=== PATIENT | female | born 1990 | race Caucasian/White ===

== ENCOUNTER 2017-04-01 17:30 | Inpatient (IN) | payer SELFPAY ==
[2017-04-01] MEDS ORDERED: ALBUTEROL SO4 2.5/IPRATROPIUM 0.5 INH SOL 3 ML VIAL.NEB. NEB ONE ×4 (17:51→19:00)
--- NOTE | 2017-04-01 17:52 | PDOC ---
History of Present Illness - History of Present Illness Initial Comments: 04/01/17 18:33 The patient is a 26 year old female, with a significant past medical history of asthma, who presents to the emergency department for asthma exacerbation. Patient states that 2 days ago, she began experiencing cold-like symptoms. She states she took her albuterol and Dulera pump which helped but only for a short period of time. Besides the shortness of breath, she is currently experiencing a headache, chills, congestion, runny nose, and is coughing up green mucus. She states that her last asthma attack occurred 2 years ago. She denies recent fevers or dizziness. She denies recent nausea, vomit, diarrhea or constipation. She denies recent dysuria, frequency, urgency or hematuria. She denies recent chest pain. Allergies: NKA Past surgical history: None reported. Social history: Nonsmoker. Denies EtOH use. Smokes marijuana occasionally. <Mari Van - Last Filed: 04/01/17 18:36> <Chadd Dong - Last Filed: 04/03/17 07:55> - General Chief Complaint: Respiratory Distress Stated Complaint: ASTHMA AND COLD SYMPTOMS Time Seen by Provider: 04/01/17 17:51 Past History <Mari Van - Last Filed: 04/01/17 18:36> - Past Medical History Anemia: No Asthma: Yes Cancer: No Cardiac Disorders: No CVA: No COPD: No CHF: No Dementia: No Diabetes: No GI Disorders: No Disorders: No HTN: No Hypercholesterolemia: No Liver Disease: No Seizures: No Thyroid Disease: No - Surgical History Abdominal Surgery: No Appendectomy: No Cardiac Surgery: No Cholecystectomy: No Lung Surgery: No Neurologic Surgery: No Orthopedic Surgery: No - Immunization History Immunization Up to Date: Yes - Suicide/Smoking/Psychosocial Hx Smoking Status: No Smoking History: Never smoked Have you smoked in the past 12 months: No Number of Cigarettes Smoked Daily: 0 Information on smoking cessation initiated: No Hx Alcohol Use: Yes (SOCIAL) Drug/Substance Use Hx: Yes (MARIJUANA) Substance Use Type: Alcohol, Marijuana Hx Substance Use Treatment: No <Chadd Dong - Last Filed: 04/03/17 07:55> - Past Medical History Allergies/Adverse Reactions: Allergies Allergy/AdvReac Type Severity Reaction Status Date / Time No Known Allergies Allergy Verified 04/01/17 17:32 Home Medications: Ambulatory Orders Albuterol 0.083% Nebulizer Tashia [Ventolin 0.083% Nebulizer Soln -] 1 neb NEB Q6H PRN #1 box 04/01/17 Albuterol Sulfate Inhaler - [Ventolin HFA Inhaler -] 2 puff BC PRN 04/01/17 Prednisone [Deltasone -] 20 mg PO DAILY #3 tablet 04/01/17 Review of Systems - Review of Systems Comments:: 04/01/17 18:32 CONSTITUTIONAL: Present: chills Absent: fever, diaphoresis, generalized weakness, malaise, loss of appetite HEENT: Present: rhinorrhea, nasal congestion. Absent: throat pain, throat swelling, difficulty swallowing, mouth swelling, ear pain, eye pain, visual Changes CARDIOVASCULAR: Absent: chest pain, syncope, palpitations, irregular heart rate, lightheadedness , peripheral edema RESPIRATORY: Present: productive cough (w/ green mucosa), shortness of breath, dyspnea, wheezing Absent: orthopnea, stridor, hemoptysis GASTROINTESTINAL: Absent: abdominal pain, abdominal distension, nausea, vomiting, diarrhea, constipation, melena, hematochezia GENITOURINARY: Absent: dysuria, frequency, urgency, hesitancy, hematuria, flank pain, genital pain MUSCULOSKELETAL: Absent: myalgia, arthralgia, joint swelling SKIN: Absent: rash, itching, pallor HEMATOLOGIC/IMMUNOLOGIC: Absent: easy bleeding, easy bruising, lymphadenopathy, frequent infections ENDOCRINE: Absent: unexplained weight gain, unexplained weight loss, heat intolerance, cold intolerance NEUROLOGIC: Present: headache Absent: focal weakness or paresthesias, dizziness, unsteady gait, seizure, mental status changes, bladder or bowel incontinence PSYCHIATRIC: Absent: anxiety, depression, suicidal or homicidal ideation, hallucinations. <Mari Van - Last Filed: 04/01/17 18:36> *Physical Exam - Vital Signs Last Vital Signs Temp Pulse Resp BP Pulse Ox 98.5 F 116 H 20 121/81 94 L 04/01/17 17:32 04/01/17 17:32 04/01/17 17:32 04/01/17 17:32 04/01/17 17:32 - Physical Exam Comments: 04/01/17 18:31 GENERAL: Patient is awake, alert . Mild- moderate respiratory distress. Respiratory rate 28 & laboured. 94 % oxygen saturation. HEENT: Normocephalic, atraumatic. PERRLA, EOMI. No conjunctival pallor. Sclera are non- icteric. Moist mucous membranes. Oropharynx is clear. Watery nasal discharge. Mild-moderate nasal congestion, mild erythema of throat without swelling, masses or exudate. NECK: Supple. Full ROM. No JVD. Carotid pulses 2+ and symmetric, without bruits. No thyromegaly. No palpable lymph nodes. CARDIOVASCULAR: 120 bpm - tachycardic. No murmurs, rubs, or gallops. Distal pulses are 2+ and symmetric. PULMONARY: Tachypnic, dyspnea mild-moderate. Bilateral wheezing involving all lung mathur. ABDOMINAL: Soft. Non-tender .No masses Non-distended. No rebound or guarding. No organomegaly. Normoactive bowel sounds. MUSCULOSKELETAL Normal range of motion at all joints. No bony deformities or tenderness. No CVA tenderness. EXTREMITIES: No cyanosis. No clubbing. No edema. No calf tenderness. SKIN: Warm and dry. Normal capillary refill. No rashes. No jaundice. NEUROLOGICAL: Intact. GENERAL: <Mari Van - Last Filed: 04/01/17 18:36> - Vital Signs Last Vital Signs Temp Pulse Resp BP Pulse Ox 98.5 F 116 H 20 121/81 94 L 04/01/17 17:32 04/01/17 17:32 04/01/17 17:32 04/01/17 17:32 04/01/17 17:32 <Chadd Dogn - Last Filed: 04/03/17 07:55> ED Treatment Course - Medications Given in the ED: ED Medications Discontinued Medications Generic Name Dose Route Start Last Admin Trade Name Freq PRN Reason Stop Dose Admin Albuterol/Ipratropium 1 amp 04/01/17 17:51 04/01/17 17:44 Duoneb - NEB 04/01/17 17:52 1 amp ONCE ONE Administration Albuterol/Ipratropium 1 amp 04/01/17 18:06 04/01/17 18:07 Duoneb - NEB 04/01/17 18:07 1 amp ONCE ONE Administration <Mari Van - Last Filed: 04/01/17 18:36> - LABORATORY CBC & Chemistry Diagram: 04/02/17 07:30 04/02/17 07:30 <Chadd Dong - Last Filed: 04/03/17 07:55> Medical Decision Making - Medical Decision Making 04/01/17 18:24 Patient had significant asthma as a child, but had no exacerbations in over 2 years. She is prescribed Dulera, which she had not been using until symptoms flared yesterday. She is also prescribed albuterol rescue inhaler, which she has been using with limited relief. This episode precipitated by what appears to be an upper respiratory infection. She has never been intubated, has had no overnight hospitalizations, and has not taken steroids since childhood. Exam reveals significant bilateral wheezing, with increased respiratory rate and decreased oxygen saturation on room air. She is also tachycardic and anxious , probably the result of prolonged albuterol use. After 2 nebulizer treatments, oxygen saturation has improved to 99-100%, respiratory rate 18 and unlabored, but she remains anxious and jittery, most likely due to to the beta agonist. A third nebulizer treatment was initiated. Steroids were recommended, but the patient declined, stating that they made her "fat" Patient was signed out to Dr. Hernandez at 7 PM pending further evaluation after third treatment. Patient appeared to be improving, with good oxygen saturation and improved breath sounds, decreased wheezing. <Chadd Dong - Last Filed: 04/03/17 07:55> *DC/Admit/Observation/Transfer - Attestations Scribe Attestion: 04/01/17 18:37 Documentation prepared by Mari Van, acting as medical services manager for Chadd Edmond MD. <Mari Van - Last Filed: 04/01/17 18:36> <Chadd Dong - Last Filed: 04/03/17 07:55> Diagnosis at time of Disposition: Status asthmaticus Qualifiers: Asthma severity: moderate Asthma persistence: unspecified Qualified Code(s): J45.902 - Unspecified asthma with status asthmaticus Pneumonia Qualifiers: Pneumonia type: due to unspecified organism Laterality: right Lung location: lower lobe of lung Qualified Code(s): J18.1 - Lobar pneumonia, unspecified organism - Discharge Dispostion Condition at time of disposition: Stable
[2017-04-01] MEDS ORDERED: predniSONE 20 MG TABLET (UD) PO ONE (19:38)
[2017-04-01] MEDS ORDERED: predniSONE 20 MG TABLET (UD) ONE (19:46)
--- NOTE | 2017-04-01 21:04 | PDOC ---
*Physical Exam - Vital Signs Last Vital Signs Temp Pulse Resp BP Pulse Ox 98.5 F 124 H 24 121/81 94 L 04/01/17 17:32 04/01/17 19:51 04/01/17 19:51 04/01/17 17:32 04/01/17 19:51 ED Treatment Course - RADIOLOGY Radiology Studies Ordered: Category Date Time Status CHEST PA & LAT [RAD] Stat Radiology 04/01/17 20:05 Taken - Medications Given in the ED: ED Medications Discontinued Medications Generic Name Dose Route Start Last Admin Trade Name Freq PRN Reason Stop Dose Admin Albuterol/Ipratropium 1 amp 04/01/17 17:51 04/01/17 17:44 Duoneb - NEB 04/01/17 17:52 1 amp ONCE ONE Administration Albuterol/Ipratropium 1 amp 04/01/17 18:06 04/01/17 18:07 Duoneb - NEB 04/01/17 18:07 1 amp ONCE ONE Administration Albuterol/Ipratropium 1 amp 04/01/17 19:00 04/01/17 19:01 Duoneb - NEB 04/01/17 19:01 1 amp ONCE ONE Administration Prednisone 40 mg 04/01/17 19:38 04/01/17 19:50 Deltasone - PO 04/01/17 19:39 40 mg ONCE ONE Administration Progress Note - Progress Note Progress Note: Care of this patient was transferred to mi from Dr. Oneil at 1900 hrs. Patient is a 26-year-old female who has a history of asthma in the past that is been stable times many years. Patient however had a recent upper respiratory tract infection and now has acute exacerbation of her asthma. Patient is relieved using prednisone at this time but is getting dual nebs back- to-back. Patient's O2 sat is in the high 80s to 90s at this time. 20:00 Reevaluation. Patient still remains tight post 3 duo nebs area discussed with patient's importance of giving her some prednisone and possible admission. Patient did agree to have some prednisone. Patient is also complaining of some pleuritic type back pain so we'll get a chest x-ray to rule out infiltrate 21:00 Reevaluation patient still is not x-ray wheezing with extra phase greater than inspiratory phase and O2 sat in the low 90s. Patient is still using some accessory muscles with respiration and says that her chest feels tight. Chest x- ray does reveal some peribronchial thickening with questionable perihilar infiltrate. Chest x-ray was interpreted by me. Patient will need an ulcer appreciated be should at least overnight for additional treatment, monitoring and some IV antibiotics are ordered in addition to CBC, and blood cultures *DC/Admit/Observation/Transfer Diagnosis at time of Disposition: Status asthmaticus Qualifiers: Asthma severity: moderate Asthma persistence: unspecified Qualified Code(s): J45.902 - Unspecified asthma with status asthmaticus Pneumonia Qualifiers: Pneumonia type: due to unspecified organism Laterality: right Lung location: lower lobe of lung Qualified Code(s): J18.1 - Lobar pneumonia, unspecified organism - Discharge Dispostion Condition at time of disposition: Stable - Prescriptions Prescriptions: Albuterol 0.083% Nebulizer Tashia [Ventolin 0.083% Nebulizer Soln -] 1 neb NEB Q6H PRN #1 box PRN Reason: wheezing Prednisone [Deltasone -] 20 mg PO DAILY #3 tablet - Referrals - Patient Instructions - Post Discharge Activity
[2017-04-01] MEDS ORDERED: AZITHROMYCIN 250 MG TABLET PO ONE (21:05)
[2017-04-01] MEDS: CEFTRIAXONE 1 GM in DEXTROSE 5%-WATER - 50 ML IVPB ONE (21:10)
[2017-04-01 21:26] LABS: BASO % 3.2 % (0-2.0); EOS % 4.6 % (0-4.5); MCHC 33.6 g/dl (32.0-36.0); MEAN CELL VOLUME 92.2 fl (80-96); MEAN PLT VOLUME 10.3 fl (7.5-11.1); NEUT % 76.1 % (42.8-82.8); PLATELET COUNT 196 K/MM3 (134-434); WHITE BLOOD COUNT 12.5 K/mm3 (4.0-10.8)
[2017-04-01 21:34] LABS: ALBUMIN 4.2 g/dl (3.5-5.0); ALK PHOS 65 U/L (32-92); ANION GAP 9 (8-16); CALCIUM 9.7 mg/dl (8.4-10.2); CO2 24 mmol/L (22-28); CREATININE 0.6 mg/dl (0.6-1.3); GLUCOSE,RANDOM 99 mg/dl (74-106); SGOT/AST 20 U/L (10-42); SGPT/ALT 13 U/L (10-40); TOT PROT 8.1 g/dl (6.4-8.3)
[2017-04-01] MEDS ORDERED: AZITHROMYCIN 250 MG TABLET ONE (21:46)
[2017-04-01] MEDS ORDERED: cefTRIAXone SODIUM 1 GM VIAL ONE (21:46)
--- NOTE | 2017-04-02 00:17 | HP ---
CHIEF COMPLAINT: COUGH, SOB PCP: HISTORY OF PRESENT ILLNESS: This is a 26 year old female with a past medical history significant for asthma who presented to the ED with a 2 day history of cough and cold symptoms. Cough is productive with greenish mucous. She denies measured fever but reports chills. ER course was notable for: (1) WBC 12.5 (2) CXR with a ? infiltrate Recent Travel: pt returned from [place] 6 weeks ago PAST MEDICAL HISTORY: asthma PAST SURGICAL HISTORY: pt denies Social History: Smoking: pt denies Alcohol: occ 3 drinks per occasion on weekends Drugs: marijuana, none since became ill Allergies No Known Allergies Allergy (Verified 04/01/17 17:32) HOME MEDICATIONS: 3 Medication Instructions Recorded Albuterol Sulfate Inhaler - 2 puff BC PRN 04/01/17 [Ventolin HFA Inhaler -] REVIEW OF SYSTEMS CONSTITUTIONAL: chills Absent: fever, diaphoresis, generalized weakness, malaise, loss of appetite, weight change HEENT: Present: rhinorrhea, nasal congestion Absent: throat pain, throat swelling, difficulty swallowing, mouth swelling, ear pain, eye pain, visual changes CARDIOVASCULAR: Absent: chest pain, syncope, palpitations, irregular heart rate, lightheadedness , peripheral edema RESPIRATORY: Present: cough, shortness of breath Absent: dyspnea with exertion, orthopnea, wheezing, stridor, hemoptysis GASTROINTESTINAL: Absent: abdominal pain, abdominal distension, nausea, vomiting, diarrhea, constipation, melena, hematochezia GENITOURINARY: Absent: dysuria, frequency, urgency, hesitancy, hematuria, flank pain, genital pain MUSCULOSKELETAL: Absent: myalgia, arthralgia, joint swelling, back pain, neck pain SKIN: Absent: rash, itching, pallor HEMATOLOGIC/IMMUNOLOGIC: Absent: easy bleeding, easy bruising, lymphadenopathy, frequent infections ENDOCRINE: Absent: unexplained weight gain, unexplained weight loss, heat intolerance, cold intolerance NEUROLOGIC: Present: headache Absent: focal weakness or paresthesias, dizziness, unsteady gait, seizure, mental status changes, bladder or bowel incontinence PSYCHIATRIC: Absent: anxiety, depression, suicidal or homicidal ideation, hallucinations. PHYSICAL EXAMINATION Vital Signs - 24 hr 3 04/01/17 04/01/17 04/01/17 17:32 19:51 21:01 Temperature 98.5 F 99.2 F Pulse Rate 116 H Pulse Rate [ 124 H 112 H Left Radial] Respiratory 20 24 24 Rate Blood Pressure 121/81 Blood Pressure 127/81 [Left Arm] O2 Sat by Pulse 94 L 94 L 92 L Oximetry (%) GENERAL: Awake, alert, and fully oriented, in no acute distress. HEAD: Normal with no signs of trauma. EYES: Pupils equal, round and reactive to light, extraocular movements intact, sclera anicteric, conjunctiva clear. No lid lag. EARS, NOSE, THROAT: Ears normal, nares patent, oropharynx clear without exudates. Moist mucous membranes. NECK: Normal range of motion, supple without lymphadenopathy, JVD, or masses. LUNGS: Breath sounds equal, clear to auscultation bilaterally. No crackles or rhonchi. No accessory muscle use. scattered inspiratory and expiratory wheezes all lung mathur HEART: Regular rate and rhythm, normal S1 and S2 without murmur, rub or gallop. ABDOMEN: Soft, nontender, not distended, normoactive bowel sounds, no guarding, no rebound, no masses. No hepatomegaly or splenomegaly. MUSCULOSKELETAL: Normal range of motion at all joints. No bony deformities or tenderness. No CVA tenderness. UPPER EXTREMITIES: 2+ pulses, warm, well-perfused. No cyanosis. No clubbing. No peripheral edema. LOWER EXTREMITIES: 2+ pulses, warm, well-perfused. No calf tenderness. No peripheral edema. NEUROLOGICAL: Cranial nerves II-XII intact. Normal speech. Normal gait. PSYCHIATRIC: Cooperative. Good eye contact. Appropriate mood and affect. SKIN: Warm, dry, normal turgor, no rashes or lesions noted, normal capillary refill. Laboratory Results - last 24 hr 3 04/01/17 04/01/17 21:00 21:00 WBC 12.5 H RBC 4.84 Hgb 15.0 Hct 44.7 MCV 92.2 MCH 31.0 MCHC 33.6 RDW 14.0 Plt Count 196 MPV 10.3 Neutrophils % 76.1 Lymphocytes % 11.4 Monocytes % 4.7 Eosinophils % 4.6 H Basophils % 3.2 H Sodium 139 Potassium 3.4 L Chloride 106 Carbon Dioxide 24 Anion Gap 9 BUN 9 Creatinine 0.6 Creat Clearance w eGFR > 60 Random Glucose 99 Calcium 9.7 Total Bilirubin 1.0 AST 20 ALT 13 Alkaline Phosphatase 65 Total Protein 8.1 Albumin 4.2 ASSESSMENT/PLAN: 26yF with PMH asthma presented to the ED with SOB, GARCIA, chills, congestion and productive cough. Community acquired PNA - treating for PNA with azithromycin and ceftriaxone - repeat CBC in am Asthma exacerbation - likely due to PNA/respiratory infection - will give solumedrol 125 x 1, reassess in am - duoneb q4h - restart dulera upon DC DVT PPX - deferred as expected LOS <48h FEN - tolerating po - bmp in am - regular diet Dispo: pt currently requires further observation for management of her emergent condition. Visit type - Emergency Visit Emergency Visit: Yes ED Registration Date: 04/01/17 Care time: The patient presented to the Emergency Department on the above date and was hospitalized for further evaluation of their emergent condition. - New Patient This patient is new to me today: Yes Date on this admission: 04/01/17 - Critical Care Critical Care patient: No
[2017-04-02] MEDS ORDERED: ALBUTEROL SO4 0.083% IH SOL 2.5 MG/3 ML VIAL.NEB. NEB ONE (00:20)
[2017-04-02] MEDS ORDERED: methylPREDNISolone NA SUCC 125 MG/2 ML VIAL IVPUSH ONE (01:14)
[2017-04-02 01:41] VITALS: BMI 26.5
[2017-04-02] MEDS ORDERED: ALBUTEROL SO4 2.5/IPRATROPIUM 0.5 INH SOL 3 ML VIAL.NEB. NEB SCH (02:00)
--- NOTE | 2017-04-02 08:00 | PN ---
Physical Exam: SUBJECTIVE: Patient seen and examined, reports shortness of breath and moderate dyspnea upon exertion. OBJECTIVE: patient is a 26 y/o female with a past medical history of asthma ( last hospitalization was 2 years ago). patient was admitted from the emergency department for asthma exacerbation. Vital Signs Period Temp Pulse Resp BP Sys/Robledo Pulse Ox Last 24 Hr 97.8 F-99.2 F 90-124 20-30 121-136/74-88 89-100 GENERAL: The patient is awake, alert, and fully oriented, in no acute distress. HEAD: Normal with no signs of trauma. EYES: PERRL, extraocular movements intact, sclera anicteric, conjunctiva clear. No ptosis. ENT: Ears normal, nares patent, oropharynx clear without exudates, moist mucous membranes. NECK: Trachea midline, full range of motion, supple. LUNGS: Breath sounds equal, billateral inspiratory wheeze throughout, rr 24, + accesory muscle use, diminished to the bases, no crackles. HEART: Regular rate and rhythm, S1, S2 without murmur, rub or gallop. ABDOMEN: Soft, nontender, nondistended, normoactive bowel sounds, no guarding, no rebound, no hepatosplenomegaly, no masses. EXTREMITIES: 2+ pulses, warm, well-perfused, no edema. NEUROLOGICAL: Cranial nerves II through XII grossly intact. Normal speech, gait not observed. PSYCH: Normal mood, normal affect. SKIN: Warm, dry, normal turgor, no rashes or lesions noted Laboratory Results - last 24 hr 04/01/17 04/01/17 21:00 21:00 WBC 12.5 H RBC 4.84 Hgb 15.0 Hct 44.7 MCV 92.2 MCH 31.0 MCHC 33.6 RDW 14.0 Plt Count 196 MPV 10.3 Neutrophils % 76.1 Lymphocytes % 11.4 Monocytes % 4.7 Eosinophils % 4.6 H Basophils % 3.2 H Sodium 139 Potassium 3.4 L Chloride 106 Carbon Dioxide 24 Anion Gap 9 BUN 9 Creatinine 0.6 Creat Clearance w eGFR > 60 Random Glucose 99 Calcium 9.7 Total Bilirubin 1.0 AST 20 ALT 13 Alkaline Phosphatase 65 Total Protein 8.1 Albumin 4.2 Active Medications Generic Name Dose Route Start Last Admin Trade Name Freq PRN Reason Stop Dose Admin Albuterol/Ipratropium 1 amp 04/02/17 10:33 Duoneb - NEB Q4H PRN SHORTNESS OF BREATH Budesonide/Formoterol Fumarate 2 puff 04/02/17 22:00 Symbicort 160/4.5mcg - IH BID EUFEMIA Azithromycin 250 mls @ 250 mls/hr 04/02/17 22:00 Zithromax 500mg Ivpb (Pre-Docked) IVPB HS EUFEMIA Lactobacillus Acidophilus 1 tab 04/02/17 10:00 04/02/17 09:18 Bacid - PO 1 tab DAILY EUFEMIA Administration Methylprednisolone Sodium Succinate 60 mg 04/02/17 10:31 Solu-Medrol - IVPUSH Q6H-IV EUFEMIA IMAGING chest xray (04/01/17): slight prominent matthew ASSESSMENT/PLAN: 1) Community acquired PNA - continue azithromycin and rocephin (04/01-) - pending chest ct - pending urine antigens, follow blood cultures 2) pulmonary Asthma exacerbation - wheezing with accessory muscle use noted on exam start solumedrol 40mg q6h, symbicort, with albuterol prn - keep sp02 above 92% with supplemental O2 - peak flow - appreciate pulmonary input DVT PPX - lovenox - scd - oob - zantac FEN - tolerating po - bmp in am - regular diet Dispo: pt currently requires further observation for management of her emergent condition. Visit type - Emergency Visit Emergency Visit: Yes ED Registration Date: 04/02/17 Care time: The patient presented to the Emergency Department on the above date and was hospitalized for further evaluation of their emergent condition. - New Patient This patient is new to me today: Yes Date on this admission: 04/02/17 - Critical Care Critical Care patient: No - Discharge Referral Referred to [facility] No
[2017-04-02] MEDS ORDERED: methylPREDNISolone NA SUCC 40 MG/1 ML VIAL IVPUSH SCH (09:00)
[2017-04-02 09:04] LABS: MCH 31.5 pg (25.7-33.7); MEAN CELL VOLUME 92.6 fl (80-96); MEAN PLT VOLUME 11.2 fl (7.5-11.1); PLATELET COUNT 193 K/MM3 (134-434); WHITE BLOOD COUNT 8.7 K/mm3 (4.0-10.8)
[2017-04-02 09:09] LABS: ANION GAP 10 (8-16); CALCIUM 9.8 mg/dl (8.4-10.2); CO2 22 mmol/L (22-28); CREATININE 0.6 mg/dl (0.6-1.3); GLUCOSE,RANDOM 128 mg/dl (74-106); MAGNESIUM 1.9 mg/dL (1.8-2.4); PHOSPHOROUS 3.2 mg/dl (2.5-4.6); PLATELET ESTIMATE ADEQUATE
[2017-04-02] MEDS ORDERED: PT OWN MED DRAWER 7, Y5N ONE ×2 (09:16→21:01)
[2017-04-02] MEDS ORDERED: MAGNESIUM SULFATE 2 GM in SODIUM CHLORIDE 100 ML IVPB ONE (09:49)
[2017-04-02] MEDS ORDERED: predniSONE 20 MG TABLET (UD) PO SCH (10:00)
[2017-04-02] MEDS ORDERED: BUDESONIDE/FORMETEROL FUMARATE 80/4.5 mcg INHALER IH SCH (10:00)
[2017-04-02] MEDS ORDERED: LACTOBACILLUS ACIDOPHILUS 1 EACH TAB (FP) PO SCH (10:00)
[2017-04-02] MEDS ORDERED: MAGNESIUM SULF 50% (8.12 MEQ/2 ML-1 GM VIAL) IVPB ONE (10:15)
--- NOTE | 2017-04-02 10:29 | PN ---
Progress Note (short form) - Note Progress Note: PULMONARY CONSULTATION DICTATED 04/02/17 IMP ACUTE ASTHMA EXACERBATION URI PROMINENT HILAR R>L PLAN IV STEROIDS INHALED BRONCHODILATORS INHALED STEROIDS MONITOR PEAK FLOW ANTIBIOTICS CHEST CT PFTS OUTPATIENT IGE LEVEL OUTPATIENT,[id number] LEVEL OUTPATIENT DR REYES Problem List - Problems (1) URI (upper respiratory infection) Code(s): J06.9 - ACUTE UPPER RESPIRATORY INFECTION, UNSPECIFIED (2) Status asthmaticus Code(s): J45.902 - UNSPECIFIED ASTHMA WITH STATUS ASTHMATICUS Qualifiers: Asthma severity: moderate Asthma persistence: unspecified Qualified Code( s): J45.902 - Unspecified asthma with status asthmaticus
[2017-04-02] MEDS ORDERED: ALBUTEROL SO4 2.5/IPRATROPIUM 0.5 INH SOL 3 ML VIAL.NEB. NEB PRN (10:33)
[2017-04-02] MEDS ORDERED: RANITIDINE HCL 150 MG TABLET (FP) PO SCH (12:00)
[2017-04-02] MEDS: methylPREDNISolone NA SUCC 125 MG/2 ML VIAL IVPUSH SCH ×2 (15:30→21:07)
--- NOTE | 2017-04-02 16:38 | CONS ---
PULMONARY CONSULTATION DATE OF CONSULTATION: 04/02/2017 REFERRING PHYSICIAN: Tiara Rice NP HISTORY OF PRESENT ILLNESS: The patient is a 26-year-old female with a past medical history of chronic asthma, never been intubated, who was admitted to [facility] with complaint of increasing shortness of breath, cough, and bronchospasm. Patient states that her asthma has been under good control. She is maintained on Dulera at home. She states she has had an exacerbation for the past 6 months. States that a few days prior to this she started developing URI symptoms, severe cough productive of yellow sputum, chills, and nasal congestion. Denied any chest pain, nausea, or vomiting. Denied any fevers. States that she started developing increasing shortness of breath, cough, and bronchospasm in spite of using her inhaler. Since this worsened, at which time, she presented to the emergency room. In the emergency room, she was noted to be in moderate respiratory distress. She was started on IV steroids and inhaled bronchodilators, , and transferred up to the floor for further management. She denies any history of occupational exposure to chemicals or fumes. She states she smokes marijuana but not cigarettes. There is no history of DVT or PE in the past. PAST MEDICAL HISTORY: Again includes asthma. MEDICATIONS PRIOR TO ADMISSION: Include Dulera and albuterol inhaler. REVIEW OF SYSTEMS: Positive cough. Positive bronchospasm. Positive shortness of breath. Positive chills. No fever. No hemoptysis. Positive sputum production. No abdominal pain. No lower extremity edema. PHYSICAL EXAMINATION: General: The patient is a well-developed, well-nourished female awake, alert, currently in no acute distress. Vital Signs: She is currently afebrile. Blood pressure is 135/71, respiratory rate is 18, O2 saturation is 95% on 2 L. HEENT: Normocephalic, atraumatic. Neck: Supple. Heart: Regular. S1, S2. Chest: Diffuse bilateral expiratory and inspiratory wheezes. Abdomen: Soft. Bowel sounds are positive. Extremities: No cyanosis or edema. DIAGNOSTIC DATA: WBC is 8.7, hemoglobin 14.6, hematocrit 42.9, with a platelet count of 193,000. BUN 11, creatinine 0.6. Chest x-ray reveals prominent hilum bilaterally, right greater than left. IMPRESSION: Acute asthma exacerbation, most likely secondary to upper respiratory tract infection. PLAN: IV steroids, inhaled bronchodilators, supplemental O2. Monitor peak flow. Also, obtain CT scan of the chest to further evaluate the patient's hilar area. PFTs as an outpatient. Serum IgE level and alpha1-antitrypsin level as an outpatient. ISABEL REYES M.D. JENNIFER/[id number]
--- NOTE | 2017-04-02 18:32 | HOSP ---
Physical Examination Vital Signs: Vital Signs Temperature 98.9 F 04/02/17 14:01 Pulse Rate 94 H 04/02/17 14:01 Respiratory Rate 19 04/02/17 15:00 Blood Pressure 131/60 04/02/17 14:01 O2 Sat by Pulse Oximetry (%) 94 L 04/02/17 15:00 Findings/Remarks: Radiology called stating the patient has CT chest with pneumomediastinum. Spoke to Ana, nursing alum plant supervisor at [place], who states the patient appears to be uncomfortable, O2 saturations 94% on 2L nasal canula. No wretching or vomiting noted. Advised to transfer the patient to [facility]. Spoke to Dr. Munson, who will evaluate the patient. Recommends urgent evaluation from thoracic surgery Called and left message with Dr. Hobson's answering service for stat consult at [id number]. Awaiting call back Patient made NPO Called Dr. George's answering service and left message re: CT chest findings of pneumomediastinum Spoke to Dr. Hobson 1908h who reviewed patient's chart and CT scan. He states pneumomediastium appears to be from asthma exacerbation, but is recommending barium swallow tomorrow morning. Order placed. Labs: CBC, BMP 04/02/17 07:30 04/02/17 07:30
--- NOTE | 2017-04-02 19:54 | HOSP ---
Subjective - Review of Symptoms Events since last encounter: Was called by Supervising Nurse at [facility] , that patient is asthmatic and having difficulty to breath. Called for patient acceptance in ICU, Discussed with the Nurse in ICU and Supervising Nurse, patient will be transferred to ICu at [facility]. Physical Examination Vital Signs: Vital Signs Temperature 98.9 F 04/02/17 14:01 Pulse Rate 94 H 04/02/17 14:01 Respiratory Rate 19 04/02/17 15:00 Blood Pressure 131/60 04/02/17 14:01 O2 Sat by Pulse Oximetry (%) 94 L 04/02/17 15:00 Labs: CBC, BMP 04/02/17 07:30 04/02/17 07:30
[2017-04-02] MEDS: CEFTRIAXONE 1 GM in DEXTROSE 5%-WATER - 50 ML IVPB ONE (21:07)
[2017-04-02] MEDS ORDERED: BUDESONIDE/FORMETEROL FUMARATE 160/4.5 mcg INHALER IH SCH (22:00)
[2017-04-02] MEDS ORDERED: AZITHROMYCIN IVPB 250 ML IVPB SCH (22:00)
[2017-04-02] MEDS ORDERED: CEFTRIAXONE 1 GM/50 ML PREMIX IVPB SCH (22:00)
--- NOTE | 2017-04-02 22:28 | CONSULT ---
Consult - Past Medical History Pulmonary: Yes: Asthma ...LMP: 03/12/17 ...: No - Alcohol/Substance Use Hx Alcohol Use: Yes (SOCIAL) - Smoking History Smoking history: Never smoked Have you smoked in the past 12 months: No Aproximately how many cigarettes per day: 0 Home Medications - Allergies Allergies/Adverse Reactions: Allergies Allergy/AdvReac Type Severity Reaction Status Date / Time No Known Allergies Allergy Verified 04/01/17 17:32 - Home Medications Home Medications: Ambulatory Orders Albuterol 0.083% Nebulizer Tashia [Ventolin 0.083% Nebulizer Soln -] 1 neb NEB Q6H PRN #1 box 04/01/17 Albuterol Sulfate Inhaler - [Ventolin HFA Inhaler -] 2 puff BC PRN 04/01/17 Prednisone [Deltasone -] 20 mg PO DAILY #3 tablet 04/01/17 Physical Exam Vital Signs: Vital Signs Temperature 98.9 F 04/02/17 14:01 Pulse Rate 112 H 04/02/17 21:50 Respiratory Rate 20 04/02/17 21:50 Blood Pressure 142/93 04/02/17 21:50 O2 Sat by Pulse Oximetry (%) 94 L 04/02/17 20:05 Labs: CBC, BMP 04/02/17 07:30 04/02/17 07:30
[2017-04-02] MEDS ORDERED: IPRATROPIUM BR 0.02% 0.5 MG/2.5 ML VIAL.NEB. NEB PRN (22:50)
[2017-04-02] MEDS ORDERED: AZITHROMYCIN IVPB 500 MG in DEXTROSE 5%-WATER - 250 ML IVPB SCH (23:00)
[2017-04-02] MEDS ORDERED: IBUPROFEN 800 MG/8 ML IJ IVPB ONE (23:43)
[2017-04-02 23:48] LABS: ARTERIAL BLD GAS O2 SATURATION 93.8 % (90-98.9); ARTERIAL BLOOD GAS BASE EXCESS -0.3 meq/l (-2-2); ARTERIAL BLOOD GAS HCO3 22.1 meq/L (22-26); ARTERIAL BLOOD GAS PO2 68.7 mmHg (80-100); ARTERIAL BLOOD GAS pH 7.46 (7.35-7.45)
[2017-04-02 23:49] LABS: ALLENS TEST POSITIVE; ART PUNCT SITE RIGHT BRACHIAL; LPM/O2% 3.5L; PT. ON O2? YES
--- NOTE | 2017-04-02 23:56 | HOSP ---
Subjective - Review of Symptoms Events since last encounter: Pt transferred from [facility] for pneumomediastinum. Subjective: Pt reports feeling "a little better" than yesterday when I saw her. She feels the wheezing has improved from earlier this morning. She now has a complaint of left sided chest and shoulder pain, worse with palpation, movement, deep inspiration. Pulmonary: Yes: Dyspnea, Pleuritic Chest Pain Physical Examination Vital Signs: Vital Signs Temperature 98.9 F 04/02/17 14:01 Pulse Rate 112 H 04/02/17 21:50 Respiratory Rate 20 04/02/17 21:50 Blood Pressure 142/93 04/02/17 21:50 O2 Sat by Pulse Oximetry (%) 94 L 04/02/17 20:05 Constitutional: Yes: Calm Cardiovascular: Yes: Regular Rate and Rhythm, S1, S2 Respiratory: Yes: Wheezes (all lung mathur, inspiratory and expiratory) Gastrointestinal: Yes: Normal Bowel Sounds, Soft Labs: CBC, BMP 04/02/17 07:30 04/02/17 07:30 Hospitalist Encounter Assessment: asthma exacerbation with pneumomediastinum - DW CT surgery, Dr. Hobson, earlier by [employer] [facility], barium esophagram pending for am, pt npo for same - duoneb changed to ipratropium neb q6h, albuterol q4h standing and PRN, just received stacked nebs upon arrival to ICU - cont solumedrol and budesonide as per pulmonary - cont empiric azithromycin and ceftriaxone - will give one dose IV ibuprofen for pain and monitor efficacy
[2017-04-03] MEDS: ALBUTEROL SO4 0.083% IH SOL 2.5 MG/3 ML VIAL.NEB. NEB SCH ×8 (00:03→22:45)
[2017-04-03] MEDS ORDERED: ALBUTEROL SO4 0.083% IH SOL 2.5 MG/3 ML VIAL.NEB. NEB PRN ×2 (00:56→19:30)
[2017-04-03] MEDS: methylPREDNISolone NA SUCC 125 MG/2 ML VIAL IVPUSH SCH ×4 (03:33→21:49)
--- NOTE | 2017-04-03 09:56 | PN ---
Physical Exam: SUBJECTIVE: Patient transfered overnight and doing well this morning but states that she had trouble sleeping. OBJECTIVE: Vital Signs Period Temp Pulse Resp BP Sys/Robledo Pulse Ox Last 24 Hr 98.8 F-98.9 F 83-112 19-32 101-142/51-93 91-94 GENERAL: The patient is awake, alert, and fully oriented, in no acute distress. HEAD: Normal with no signs of trauma. EYES: PERRL, extraocular movements intact, sclera anicteric, conjunctiva clear. No ptosis. ENT: Ears normal, nares patent, oropharynx clear without exudates, moist mucous membranes. NECK: Trachea midline, full range of motion, supple. LUNGS: Bilateral wheezes and crackles. HEART: Regular rate and rhythm, S1, S2 without murmur, rub or gallop. ABDOMEN: Soft, nontender, nondistended, normoactive bowel sounds, no guarding, no rebound, no hepatosplenomegaly, no masses. EXTREMITIES: 2+ pulses, warm, well-perfused, no edema. NEUROLOGICAL: Normal speech, gait not observed. PSYCH: Normal mood, normal affect. SKIN: Warm, dry, normal turgor, no rashes or lesions noted Laboratory Results - last 24 hr 04/02/17 04/02/17 04/03/17 11:00 23:35 00:10 Puncture Site Right brachial ABG pH 7.46 H ABG pCO2 at Pt Temp 31.4 L ABG pO2 at Pt Temp 68.7 L ABG HCO3 22.1 ABG O2 Sat (Measured) 93.8 ABG O2 Content 19.1 ABG Base Excess -0.3 Chuck Test Positive O2 Delivery Device Mike can Oxygen Flow Rate 3.5l Lactic Acid 0.9 Urine HCG, Qual Negative Active Medications Generic Name Dose Route Start Last Admin Trade Name Freq PRN Reason Stop Dose Admin Albuterol Sulfate 1 amp 04/03/17 02:00 04/03/17 06:40 Ventolin 0.083% Nebulizer Soln - NEB Not Given Q4HPO EUFEMIA Albuterol Sulfate 1 amp 04/03/17 00:56 Ventolin 0.083% Nebulizer Soln - NEB Q4H PRN SHORT OF BREATH/WHEEZING Budesonide/Formoterol Fumarate 2 puff 04/03/17 10:00 Symbicort 160/4.5mcg - IH BID EUFEMIA Enoxaparin Sodium 40 mg 04/03/17 10:00 Lovenox - SQ DAILY EUFEMIA Azithromycin 500 mg/ Dextrose 250 mls @ 250 mls/hr 04/02/17 23:00 04/02/17 23 :07 IVPB 250 mls/hr HS EUFEMIA Administration CEFTRIAXONE 1 G/50 ML PREMIX 50 mls @ 100 mls/hr 04/03/17 22:00 Ceftriaxone 1 Gm-D5w Bag IVPB HS EUFEMIA Ipratropium [place] 1 amp 04/02/17 22:50 Atrovent 0.02% Nebulizer - NEB Q6H PRN WHEEZING Lactobacillus Acidophilus 1 tab 04/03/17 10:00 Bacid - PO DAILY EUFEMIA Methylprednisolone Sodium Succinate 60 mg 04/03/17 09:00 Solu-Medrol - IVPUSH Q6H-IV EUFEMIA Ranitidine HCl 150 mg 04/03/17 10:00 Zantac - PO DAILY EUFEMIA ASSESSMENT/PLAN: 26 year old female with PMH of asthma and presenting with acute asthma exacerbation and CT chest concerning for asthma exacerbation with pneumomediastinum. Pulm: #Asthma: - continue nebs Q 4 PRN - continue daily steroids #PNA -continue azithromycin and ceftriaxone #Pneumomediastium: - pending barium esophagram. FEN: - NPO for procedure today Prohpy: - Moving, with SCDs - will have PO after procedure if safe, if not will stat ppx Dispo: - stable to go to [facility] Visit type - Emergency Visit Emergency Visit: No - New Patient This patient is new to me today: No - Critical Care Critical Care patient: Yes Total Critical Care Time (in minutes): 35 Critical Care Statement: The care of this patient involved high complexity decision making to prevent further life threatening deterioration of the patient 's condition and/or to evaluate & treat vital organ system(s) failure or risk of failure. - Discharge Referral Referred to [facility] Med [facility].C.: No
[2017-04-03] MEDS ORDERED: ENOXAPARIN NA (PORCINE) 40 MG/0.4 ML DISP.SYRIN SQ SCH ×2 (10:00)
[2017-04-03] MEDS ORDERED: BUDESONIDE/FORMETEROL FUMARATE 160/4.5 mcg INHALER IH SCH (10:00)
[2017-04-03] MEDS ORDERED: PT OWN MED DRAWER 7, Y5N ONE ×3 (10:01→22:23)
[2017-04-03] MEDS: RANITIDINE HCL 150 MG TABLET (FP) PO SCH ×2 (10:04→14:23)
[2017-04-03] MEDS: LACTOBACILLUS ACIDOPHILUS 1 EACH TAB (FP) PO SCH ×2 (10:05→14:23)
--- NOTE | 2017-04-03 11:41 | CON.GI ---
Consult Consult Specialty:: GI - History of Present Illness History of Present Illness: A 26 yof with asthma developed URI symptoms 2-3 days ago followed by severe case of asthma exacerbation. In ED, CT chest picked up mediastinal air withough obvious esopageal abnormalities. Pt reports Hx of GERD, which improved after intentional 40 lb weight loss. Off chronic PPI. Denies dysphagia, odynophagia, chest pain, vomiting, ratcheting, hematemesis. Reports excessive, forceful bouts of cough. Clinically, non-toxic appearing, not in pain, appears quite comfortable at the time of this encounter. - History Source History Provided By: Patient - Past Medical History Pulmonary: Yes: Asthma Gastrointestinal: Yes: GERD ...LMP: 03/12/17 ...: No - Alcohol/Substance Use Hx Alcohol Use: Yes (SOCIAL) - Smoking History Smoking history: Never smoked Have you smoked in the past 12 months: No Aproximately how many cigarettes per day: 0 Home Medications - Allergies Allergies/Adverse Reactions: Allergies Allergy/AdvReac Type Severity Reaction Status Date / Time No Known Allergies Allergy Verified 04/01/17 17:32 - Home Medications Home Medications: Ambulatory Orders Albuterol 0.083% Nebulizer Tashia [Ventolin 0.083% Nebulizer Soln -] 1 neb NEB Q6H PRN #1 box 04/01/17 Albuterol Sulfate Inhaler - [Ventolin HFA Inhaler -] 2 puff BC PRN 04/01/17 Prednisone [Deltasone -] 20 mg PO DAILY #3 tablet 04/01/17 Family Disease History - Family Disease History Family History: Unremarkable Review of Systems Findings/Remarks: please refer to H&P Physical Exam-GI Vital Signs: Vital Signs Temperature 98.9 F 04/03/17 04:00 Pulse Rate 90 04/03/17 08:00 Respiratory Rate 32 H 04/03/17 08:00 Blood Pressure 120/75 04/03/17 08:00 O2 Sat by Pulse Oximetry (%) 94 L 04/02/17 23:00 Constitutional: Yes: Well Nourished, No Distress, Calm Eyes: Yes: Conjunctiva Clear HENT: Yes: Atraumatic Neck: Yes: Supple Cardiovascular: Yes: Regular Rate and Rhythm Respiratory: Yes: Regular ...Palpate: No: Tenderness, Tenderness, Epigastium Neurological: Yes: Alert, Oriented Labs: CBC, BMP 04/02/17 07:30 04/02/17 07:30 CBCD WBC 8.7 K/mm3 (4.0-10.8) D 04/02/17 07:30 RBC 4.63 M/mm3 (3.60-5.2) 04/02/17 07:30 Hgb 14.6 GM/dl (10.7-15.3) 04/02/17 07:30 Hct 42.9 % (32.4-45.2) 04/02/17 07:30 MCV 92.6 fl (80-96) 04/02/17 07:30 MCHC 34.0 g/dl (32.0-36.0) 04/02/17 07:30 RDW 14.0 % (11.6-15.6) 04/02/17 07:30 Plt Count 193 K/MM3 (134-434) 04/02/17 07:30 MPV 11.2 fl (7.5-11.1) H 04/02/17 07:30 CMP Sodium 139 mmol/L (136-145) 04/02/17 07:30 Potassium 3.6 mmol/L (3.5-5.1) 04/02/17 07:30 Chloride 107 mmol/L (98-107) 04/02/17 07:30 Carbon Dioxide 22 mmol/L (22-28) 04/02/17 07:30 Anion Gap 10 (8-16) 04/02/17 07:30 BUN 11 mg/dl (7-18) D 04/02/17 07:30 Creatinine 0.6 mg/dl (0.6-1.3) 04/02/17 07:30 Creat Clearance w eGFR > 60 (>60) 04/01/17 21:00 Calcium 9.8 mg/dl (8.4-10.2) 04/02/17 07:30 Total Bilirubin 1.0 mg/dl (0.2-1.0) 04/01/17 21:00 AST 20 U/L (10-42) 04/01/17 21:00 ALT 13 U/L (10-40) 04/01/17 21:00 Alkaline Phosphatase 65 U/L (32-92) 04/01/17 21:00 Total Protein 8.1 g/dl (6.4-8.3) 04/01/17 21:00 Albumin 4.2 g/dl (3.5-5.0) 04/01/17 21:00 Imaging - Results Cat Scan: Report Reviewed Problem List - Problems (1) Pneumomediastinum Code(s): J98.2 - INTERSTITIAL EMPHYSEMA (2) Asthma Code(s): J45.909 - UNSPECIFIED ASTHMA, UNCOMPLICATED Assessment/Plan Most likely cough-related pneumomediastinum. No obvious esophageal lesions on chest CT. No history, or symptoms to suspect Boerhaave's syndrome. Gastrografin esophagogram Continue the same care discussed with the patient
--- NOTE | 2017-04-03 11:52 | CONSULT ---
Consult - text type - Consultation Consultation Note: Thoracic Surgery: Reason for consult: pneumomediastinum 26F p/w coughing fit due to asthma exacerbation which was secondary to acute severe URI (likely viral). No emesis. No retching. No fevers. CT showed pneumomediastinum in superior mediastinum without pleural effusions. Vitals: HD stable with intermittent tachycardia PE: no evidence of crepitus Imp/Plan: Pneumomediastinum detected incidentally on CT chest--secondary to coughing, ?microperforation upper airway --Swallow study --If negative, supportive care of URI/reactive airway disease, no further management necessary for pneumomediastinum. I have spent 40 minutes with >50% on counseling and coordination of care in doing this consultation including discussion with Jay Sepulveda, organization of Esophagram, and history/physical, and review of imaging.
--- NOTE | 2017-04-03 13:09 | PN ---
Teaching Attending Note Name of Resident: Laci Cerda ATTENDING PHYSICIAN STATEMENT I saw and evaluated the patient. I reviewed the resident's note and discussed the case with the resident. I agree with the resident's findings and plan as documented. SUBJECTIVE: Patient seen and examined in the ICU. Breathing a little better today. No CP. Barium swallow ordered. Intake & Output 03/31/17 04/01/17 04/02/17 04/03/17 23:59 23:59 23:59 23:59 Intake Total 1475 Balance 1475 Weight 155 lb 145 lb 118 lb Last Vital Signs Temp Pulse Resp BP Pulse Ox 98.5 F 104 H 28 H 123/76 96 04/03/17 10:00 04/03/17 12:00 04/03/17 12:00 04/03/17 12:00 04/03/17 11:00 Active Medications Albuterol Sulfate (Ventolin 0.083% Nebulizer Soln -) 1 amp NEB Q4HPO [facility] Last Admin: 04/03/17 10:15 Dose: 1 amp Albuterol Sulfate (Ventolin 0.083% Nebulizer Soln -) 1 amp NEB Q4H PRN PRN Reason: SHORT OF BREATH/WHEEZING Budesonide/Formoterol Fumarate (Symbicort 160/4.5mcg -) 2 puff IH BID [facility] Last Admin: 04/03/17 12:19 Dose: 2 inh Enoxaparin Sodium (Lovenox -) 40 mg SQ DAILY [facility] Last Admin: 04/03/17 10:05 Dose: 40 mg Azithromycin 500 mg/ Dextrose 250 mls @ 250 mls/hr IVPB HS [facility] Last Admin: 04/02/17 23:07 Dose: 250 mls/hr CEFTRIAXONE 1 G/50 ML PREMIX (Ceftriaxone 1 Gm-D5w Bag) 50 mls @ 100 mls/hr IVPB HS [facility] Ipratropium [place] (Atrovent 0.02% Nebulizer -) 1 amp NEB Q6H PRN PRN Reason: WHEEZING Lactobacillus Acidophilus (Bacid -) 1 tab PO DAILY [facility] Methylprednisolone Sodium Succinate (Solu-Medrol -) 60 mg IVPUSH Q6H-IV EUFEMIA Last Admin: 04/03/17 10:05 Dose: 60 mg Ranitidine HCl (Zantac -) 150 mg PO DAILY [facility] GENERAL: The patient is awake, alert, and fully oriented, in no acute distress. HEAD: Normal with no signs of trauma. EYES: PERRL, extraocular movements intact, sclera anicteric, conjunctiva clear. No ptosis. ENT: Ears normal, nares patent, oropharynx clear without exudates, moist mucous membranes. NECK: Trachea midline, full range of motion, supple. No crepitus LUNGS: Bilateral expiratory wheeze, no accessory muscle use. HEART: Regular rate and rhythm, S1, S2 without murmur, rub or gallop. ABDOMEN: Soft, nontender, nondistended, normoactive bowel sounds, no guarding, no rebound, no hepatosplenomegaly, no masses. EXTREMITIES: 2+ pulses, warm, well-perfused, no edema. NEUROLOGICAL: Non-focal PSYCH: Normal mood, normal affect. SKIN: Warm, dry, normal turgor, no rashes or lesions noted Laboratory Results - last 24 hr 04/02/17 04/02/17 04/03/17 11:00 23:35 00:10 Puncture Site Right brachial ABG pH 7.46 H ABG pCO2 at Pt Temp 31.4 L ABG pO2 at Pt Temp 68.7 L ABG HCO3 22.1 ABG O2 Sat (Measured) 93.8 ABG O2 Content 19.1 ABG Base Excess -0.3 Chuck Test Positive O2 Delivery Device Mike can Oxygen Flow Rate 3.5l Lactic Acid 0.9 Urine HCG, Qual Negative Problem List - Problems (1) URI (upper respiratory infection) Code(s): J06.9 - ACUTE UPPER RESPIRATORY INFECTION, UNSPECIFIED (2) Status asthmaticus Code(s): J45.902 - UNSPECIFIED ASTHMA WITH STATUS ASTHMATICUS Qualifiers: Asthma severity: moderate Asthma persistence: unspecified Qualified Code( s): J45.902 - Unspecified asthma with status asthmaticus IMP ACUTE ASTHMA EXACERBATION LEADING TO MILD PNEUMOMEDIASTINUM SUSPECTED VIRAL ILLNESS THE ETIOLOGY OF HER PARENCHYMAL ABNORMALITIES NO HILAR R>L PLAN IV STEROIDS INHALED BRONCHODILATORS INHALED STEROIDS MONITOR PEAK FLOW ANTIBIOTICS IGE LEVEL OUTPATIENT,[id number] LEVEL OUTPATIENT FOR BARIUM SWALLOW FLOOR SUPPLEMENTAL O2 DR REYEZ Critical care time spent in reviewing chart, evaluating patient and formulating plan - 36 minutes.
--- NOTE | 2017-04-03 13:20 | PN ---
Progress Note (short form) - Note Progress Note: Awaiting results of barium swallow study
[2017-04-03] MEDS ORDERED: IBUPROFEN 600 MG TABLET (FP) PO ONE (14:26)
--- NOTE | 2017-04-03 16:13 | PN ---
Progress Note (short form) - Note Progress Note: Subjective: The patient was seen and examined at the bedside, she states her respirations have improved slightly from yesterday but with any movement she becomes fatigued Barium esophagram negative Current Medications Generic Name Dose Route Start Last Admin Trade Name Freq PRN Reason Stop Dose Admin Albuterol Sulfate 1 amp 04/03/17 02:00 04/03/17 10:15 Ventolin 0.083% Nebulizer Soln - NEB 1 amp Q4HPO EUFEMIA Administration Albuterol Sulfate 1 amp 04/03/17 00:56 Ventolin 0.083% Nebulizer Soln - NEB Q4H PRN SHORT OF BREATH/WHEEZING Budesonide/Formoterol Fumarate 2 puff 04/03/17 10:00 04/03/17 12:19 Symbicort 160/4.5mcg - IH 2 inh BID EUFEMIA Administration Enoxaparin Sodium 40 mg 04/03/17 10:00 04/03/17 10:05 Lovenox - SQ 40 mg DAILY EUFEMAI Administration Azithromycin 500 mg/ Dextrose 250 mls @ 250 mls/hr 04/02/17 23:00 04/02/17 23 :07 IVPB 250 mls/hr HS EUFEMIA Administration CEFTRIAXONE 1 G/50 ML PREMIX 50 mls @ 100 mls/hr 04/03/17 22:00 Ceftriaxone 1 Gm-D5w Bag IVPB HS EUFEMIA Ipratropium [place] 1 amp 04/02/17 22:50 Atrovent 0.02% Nebulizer - NEB Q6H PRN WHEEZING Lactobacillus Acidophilus 1 tab 04/03/17 10:00 04/03/17 14:23 Bacid - PO 1 tab DAILY EUFEMIA Administration Methylprednisolone Sodium Succinate 60 mg 04/03/17 09:00 04/03/17 14:28 Solu-Medrol - IVPUSH 60 mg Q6H-IV EUFEMIA Administration Ranitidine HCl 150 mg 04/03/17 10:00 04/03/17 14:23 Zantac - PO 150 mg DAILY EUFEMIA Administration Objective: Vital Signs Period Temp Pulse Resp BP Sys/Robledo Pulse Ox Last 24 Hr 98.5 F-98.9 F 83-112 19-32 101-142/51-93 94-96 Physical Exam: General: NAD, A&Ox3 Lungs: B/l rhonchi with inspiratory and expiratory wheezing Heart: Tachycardia, S1S2 Abd: Soft, non-tender, non-distended. Normoactive bowel sounds Ext: Warm, well-perfused. 2+ DP/PT bilaterally Neuro: No focal deficits CBCD WBC 8.7 K/mm3 (4.0-10.8) D 04/02/17 07:30 RBC 4.63 M/mm3 (3.60-5.2) 04/02/17 07:30 Hgb 14.6 GM/dl (10.7-15.3) 04/02/17 07:30 Hct 42.9 % (32.4-45.2) 04/02/17 07:30 MCV 92.6 fl (80-96) 04/02/17 07:30 MCHC 34.0 g/dl (32.0-36.0) 04/02/17 07:30 RDW 14.0 % (11.6-15.6) 04/02/17 07:30 Plt Count 193 K/MM3 (134-434) 04/02/17 07:30 MPV 11.2 fl (7.5-11.1) H 04/02/17 07:30 CMP Sodium 139 mmol/L (136-145) 04/02/17 07:30 Potassium 3.6 mmol/L (3.5-5.1) 04/02/17 07:30 Chloride 107 mmol/L (98-107) 04/02/17 07:30 Carbon Dioxide 22 mmol/L (22-28) 04/02/17 07:30 Anion Gap 10 (8-16) 04/02/17 07:30 BUN 11 mg/dl (7-18) D 04/02/17 07:30 Creatinine 0.6 mg/dl (0.6-1.3) 04/02/17 07:30 Creat Clearance w eGFR > 60 (>60) 04/01/17 21:00 Random Glucose 128 mg/dl (74-106) H D 04/02/17 07:30 Calcium 9.8 mg/dl (8.4-10.2) 04/02/17 07:30 Total Bilirubin 1.0 mg/dl (0.2-1.0) 04/01/17 21:00 AST 20 U/L (10-42) 04/01/17 21:00 ALT 13 U/L (10-40) 04/01/17 21:00 Alkaline Phosphatase 65 U/L (32-92) 04/01/17 21:00 Total Protein 8.1 g/dl (6.4-8.3) 04/01/17 21:00 Albumin 4.2 g/dl (3.5-5.0) 04/01/17 21:00 Microbiology 04/02/17 22:51 Nasopharyngeal Swab Respiratory Virus (PCR) - Preliminary 04/01/17 21:52 Blood - Peripheral Venous Blood Culture - Preliminary NO GROWTH OBTAINED AFTER 24 HOURS, INCUBATION TO CONTINUE FOR 4 DAYS. 04/01/17 21:52 Blood - Peripheral Venous Blood Culture - Preliminary NO GROWTH OBTAINED AFTER 24 HOURS, INCUBATION TO CONTINUE FOR 4 DAYS. 04/01/17 21:52 Nasopharyngeal Swab Influenza Types A,B Antigen (JOSE MARTIN) - Final 04/01/17 21:52 Nasopharyngeal Swab - Final Assessment: This is a 26 year old female with PMHx of asthma who presented to the ED with shortness of breath and coughing x4 days. Plan: 1) Acute asthma exacerbation leading to mild penuromediastinum - Barium esophagram negative today - Continue Solu-medrol 60mg q6h - Continue Symbicort - Continue Albuterol nebs - Outpatient allergy testing - Outpatient IgE, alpha-1 - Appreciate pulmonary consult 2) Sepsis 2/2 Community acquired pneumonia - WBC now wnl, remains tachycardic - Continue Azithromycin - Continue Ceftriaxone - F/u urine legionella Ag 3) F/E/N: - Monitor electrolytes - Regular diet 4) Prophylaxis: - Lovenox 40mg sq daily 5) Dispo: - Requires continued inpatient care CODE STATUS: FULL CODE Visit type - Emergency Visit Emergency Visit: Yes ED Registration Date: 04/02/17 Care time: The patient presented to the Emergency Department on the above date and was hospitalized for further evaluation of their emergent condition. - New Patient This patient is new to me today: Yes Date on this admission: 04/03/17 - Critical Care Critical Care patient: No
[2017-04-03] MEDS ORDERED: IPRATROPIUM BR 0.02% 0.5 MG/2.5 ML VIAL.NEB. NEB PRN (19:30)
[2017-04-03] MEDS: CEFTRIAXONE 1 G/50 ML PREMIX 50 ML IVPB SCH (21:47)
[2017-04-03] MEDS: BUDESONIDE/FORMETEROL FUMARATE 160/4.5 mcg INHALER IH SCH (21:49)
[2017-04-03] MEDS ORDERED: CEFTRIAXONE 1 GM/50 ML PREMIX IVPB SCH (22:00)
[2017-04-03] MEDS ORDERED: CEFTRIAXONE 1 G/50 ML PREMIX 50 ML IVPB SCH (22:00)
[2017-04-03] MEDS: AZITHROMYCIN IVPB 500 MG in DEXTROSE 5%-WATER - 250 ML IVPB SCH (22:41)
[2017-04-03] MEDS ORDERED: FLUCONAZOLE 100 MG TABLET (UD) PO ONE (23:45)
[2017-04-03] MEDS ORDERED: FLUCONAZOLE 150 MG TABLET PO ONE (23:45)
[2017-04-04] MEDS: ALBUTEROL SO4 0.083% IH SOL 2.5 MG/3 ML VIAL.NEB. NEB SCH ×3 (02:18→10:55)
[2017-04-04] MEDS: methylPREDNISolone NA SUCC 125 MG/2 ML VIAL IVPUSH SCH ×2 (03:11→10:14)
[2017-04-04 07:37] LABS: MCHC 32.2 g/dl (32.0-36.0); MEAN CELL VOLUME 93.1 fl (80-96); MEAN PLT VOLUME 9.9 fl (7.5-11.1); PLATELET COUNT 184 K/MM3 (134-434)
[2017-04-04 08:15] LABS: ALBUMIN 3.4 g/dl (3.4-5.0); ANION GAP 12 (8-16); CALCIUM 9.2 mg/dL (8.5-10.1); CO2 22 mmol/L (21-32); GLUCOSE,RANDOM 112 mg/dL (74-106)
[2017-04-04 08:19] LABS: ALK PHOS 74 U/L (45-117); BILIRUBIN,TOTAL 0.7 mg/dL (0.2-1.0); CREATININE 0.6 mg/dL (0.55-1.02); SGOT/AST 9 U/L (15-37); SGPT/ALT 17 U/L (12-78); TOT PROT 7.3 g/dl (6.4-8.2)
[2017-04-04] MEDS: BUDESONIDE/FORMETEROL FUMARATE 160/4.5 mcg INHALER IH SCH ×2 (08:50→21:05)
[2017-04-04] MEDS ORDERED: PT OWN MED DRAWER 7, Y5N ONE ×3 (09:40→20:58)
[2017-04-04] MEDS: LACTOBACILLUS ACIDOPHILUS 1 EACH TAB (FP) PO SCH (10:14)
[2017-04-04] MEDS: RANITIDINE HCL 150 MG TABLET (FP) PO SCH (10:15)
[2017-04-04] MEDS: ENOXAPARIN NA (PORCINE) 40 MG/0.4 ML DISP.SYRIN SQ SCH (10:15)
--- NOTE | 2017-04-04 12:05 | PN ---
Physical Exam: SUBJECTIVE: Patient seen and examined at bedside. States she is still SOB. OBJECTIVE: Vital Signs Period Temp Pulse Resp BP Sys/Robledo Pulse Ox Last 24 Hr 98.3 F-98.6 F 76-103 22-26 112-144/68-91 93-96 GENERAL: The patient is awake, alert, and fully oriented, in no acute distress. LUNGS: Poor air movement; diffuse wheezing and rhonchi HEART: Regular rate and rhythm, S1, S2 ABDOMEN: Soft, nontender, nondistended, normoactive bowel sounds, no guarding, no rebound EXTREMITIES: 2+ pulses, warm, well-perfused, no edema. NEUROLOGICAL: Cranial nerves II through XII grossly intact. Normal speech, ambulating steadily around the room Laboratory Results - last 24 hr 04/04/17 04/04/17 06:10 06:10 WBC 19.0 H D RBC 4.84 Hgb 14.5 D Hct 45.1 D MCV 93.1 MCH 30.0 MCHC 32.2 RDW 15.0 Plt Count 184 MPV 9.9 Sodium 142 Potassium 3.8 Chloride 108 H Carbon Dioxide 22 Anion Gap 12 BUN 16 D Creatinine 0.6 D Creat Clearance w eGFR > 60 Random Glucose 112 H D Calcium 9.2 Total Bilirubin 0.7 D AST 9 L D ALT 17 Alkaline Phosphatase 74 Total Protein 7.3 Albumin 3.4 Active Medications Generic Name Dose Route Start Last Admin Trade Name Freq PRN Reason Stop Dose Admin Albuterol Sulfate 1 amp 04/03/17 19:30 Ventolin 0.083% Nebulizer Soln - NEB Q4H PRN SHORT OF BREATH/WHEEZING Albuterol Sulfate 1 amp 04/03/17 22:00 04/04/17 05:59 Ventolin 0.083% Nebulizer Soln - NEB 1 amp Q4HPO EUFEMIA Administration Budesonide/Formoterol Fumarate 2 puff 04/03/17 22:00 04/03/17 21:49 Symbicort 160/4.5mcg - IH 2 puff BID EUFEMIA Administration Enoxaparin Sodium 40 mg 04/04/17 10:00 04/04/17 10:15 Lovenox - SQ 40 mg DAILY EUFEMIA Administration Azithromycin 500 mg/ Dextrose 250 mls @ 166.667 mls/hr 04/03/17 22:00 22:41 IVPB 166.667 mls/hr HS EUFEMIA Administration CEFTRIAXONE 1 G/50 ML PREMIX 50 mls @ 100 mls/hr 04/03/17 22:00 04/03/17 21: 47 Ceftriaxone 1 Gm-D5w Bag IVPB 100 mls/hr HS EUFEMIA Administration Ipratropium [place] 1 amp 04/03/17 19:30 Atrovent 0.02% Nebulizer - NEB Q6H PRN WHEEZING Lactobacillus Acidophilus 1 tab 04/04/17 10:00 04/04/17 10:14 Bacid - PO 1 tab DAILY EUFEMIA Administration Methylprednisolone Sodium Succinate 60 mg 04/03/17 21:00 04/04/17 10:14 Solu-Medrol - IVPUSH 60 mg Q6H-IV EUFEMIA Administration Ranitidine HCl 150 mg 04/04/17 10:00 04/04/17 10:15 Zantac - PO 150 mg DAILY EUFEMIA Administration ASSESSMENT/PLAN 26 year-old female with PMH significant for asthma admitted for pneumomediastinum and acute asthma exacerbation. Pneumomediastinum likely secondary to acute asthma exacerbation --04/02 CT chest: (1) pneumomediastinum; (2) atelectasis; cannot r/o pneumonia --04/03 barirum swallow: negative study --seen and evaluated by CT surgery, no further management necessary --continue solumedrol IV, Symbicort, nebs --continue azithro and ceftriaxone --daily peak flows Vaginal discharge Dysuria --diflucan x 1 dose given last night with symptomatic relief today --UA & UC to be collected and sent FEN Fluids: PO intake adequate Electrolytes: replete as indicated Nutrition: regular diet DVT prophylaxis: lovenox, oob, ambulation Dispo: continues to require inpatient care. Full code. Visit type - Emergency Visit Emergency Visit: Yes ED Registration Date: 04/02/17 Care time: The patient presented to the Emergency Department on the above date and was hospitalized for further evaluation of their emergent condition. - New Patient This patient is new to me today: Yes Date on this admission: 04/04/17 - Critical Care Critical Care patient: No
--- NOTE | 2017-04-04 12:39 | PN ---
Progress Note (short form) - Note Progress Note: PULMONARY Still some anterior chest pain. +cough and wheezing. Feels about the same as yesterday. Last Vital Signs Temp Pulse Resp BP Pulse Ox 98.3 F 95 H 22 129/80 93 L 04/04/17 06:19 04/04/17 10:00 04/04/17 10:00 04/04/17 10:00 04/04/17 10:00 Gen: NAD at rest Heart: RRR Lung: bilateral rhonchi, wheezes Abd: soft, nontender Ext: no edema CBC, BMP 04/04/17 06:10 04/04/17 06:10 Active Medications Albuterol Sulfate (Ventolin 0.083% Nebulizer Soln -) 1 amp NEB Q4H PRN PRN Reason: SHORT OF BREATH/WHEEZING Albuterol Sulfate (Ventolin 0.083% Nebulizer Soln -) 1 amp NEB Q4HPO [facility] Last Admin: 04/04/17 05:59 Dose: 1 amp Budesonide/Formoterol Fumarate (Symbicort 160/4.5mcg -) 2 puff IH BID [facility] Last Admin: 04/03/17 21:49 Dose: 2 puff Enoxaparin Sodium (Lovenox -) 40 mg SQ DAILY [facility] Last Admin: 04/04/17 10:15 Dose: 40 mg Azithromycin 500 mg/ Dextrose 250 mls @ 166.667 mls/hr IVPB [facility] Last Admin: 04/03/17 22:41 Dose: 166.667 mls/hr CEFTRIAXONE 1 G/50 ML PREMIX (Ceftriaxone 1 Gm-D5w Bag) 50 mls @ 100 mls/hr IVPB [facility] Last Admin: 04/03/17 21:47 Dose: 100 mls/hr Ipratropium [place] (Atrovent 0.02% Nebulizer -) 1 amp NEB Q6H PRN PRN Reason: WHEEZING Lactobacillus Acidophilus (Bacid -) 1 tab PO DAILY [facility] Last Admin: 04/04/17 10:14 Dose: 1 tab Methylprednisolone Sodium Succinate (Solu-Medrol -) 60 mg IVPUSH Q6H-IV [facility] Last Admin: 04/04/17 10:14 Dose: 60 mg Ranitidine HCl (Zantac -) 150 mg PO DAILY [facility] Last Admin: 04/04/17 10:15 Dose: 150 mg A/P Acute Asthma Exacerbation Pneumomediastinum - will decrease medrol to 40mg q8h - inahled bronchodilators standing and PRN - monitor peak flow - will add singulair - DVT prophylaxis
[2017-04-04 15:49] LABS: URINE APPEARANCE CLEAR; URINE BILIRUBIN NEGATIVE (NEGATIVE); URINE BLOOD NEGATIVE (NEGATIVE); URINE COLOR LTYELLOW; URINE GLUCOSE (UA) NEGATIVE (NEGATIVE); URINE KETONE NEGATIVE (NEGATIVE); URINE LEUK ESTERASE NEGATIVE (NEGATIVE); URINE NITRITE NEGATIVE (NEGATIVE); URINE PROTEIN NEGATIVE (NEGATIVE); URINE UROBILINOGEN NEGATIVE mg/dL (0.2-1.0)
[2017-04-04] MEDS: methylPREDNISolone NA SUCC 40 MG/1 ML VIAL IVPUSH SCH (18:05)
[2017-04-04] MEDS: MONTELUKAST NA 10 MG TABLET PO SCH (21:02)
[2017-04-04] MEDS: CEFTRIAXONE 1 G/50 ML PREMIX 50 ML IVPB SCH (21:02)
[2017-04-04 21:13] LABS: URINE LEUK ESTERASE Negative (NEGATIVE)
[2017-04-04] MEDS: AZITHROMYCIN IVPB 500 MG in DEXTROSE 5%-WATER - 250 ML IVPB SCH (21:46)
[2017-04-04] MEDS: ALBUTEROL SO4 2.5/IPRATROPIUM 0.5 INH SOL 3 ML VIAL.NEB. NEB SCH (23:31)
[2017-04-05] MEDS: methylPREDNISolone NA SUCC 40 MG/1 ML VIAL IVPUSH SCH ×3 (02:09→17:56)
[2017-04-05] MEDS: ALBUTEROL SO4 2.5/IPRATROPIUM 0.5 INH SOL 3 ML VIAL.NEB. NEB SCH ×5 (02:09→23:50)
--- NOTE | 2017-04-05 08:49 | PN ---
Physical Exam: SUBJECTIVE: Patient seen and examined OBJECTIVE: Vital Signs Period Temp Pulse Resp BP Sys/Robledo Pulse Ox Last 24 Hr 97.9 F-98.5 F 75-95 20-22 119-137/75-80 93-94 GENERAL: The patient is awake, alert, and fully oriented, in no acute distress. LUNGS: Mildly improved air movement; diffuse wheezing and rhonchi HEART: Regular rate and rhythm, S1, S2 ABDOMEN: Soft, nontender, nondistended, normoactive bowel sounds, no guarding, no rebound EXTREMITIES: 2+ pulses, warm, well-perfused, no edema. NEUROLOGICAL: Cranial nerves II through XII grossly intact. Normal speech, ambulating steadily around the room Laboratory Results - last 24 hr 04/04/17 14:39 Urine Color Ltyellow Urine Appearance Clear Urine pH 7.0 Ur Specific [place] 1.021 Urine Protein Negative Urine Glucose (UA) Negative Urine Ketones Negative Urine Blood Negative Urine Nitrite Negative Urine Bilirubin Negative Urine Urobilinogen Negative Ur Leukocyte Esterase Negative Active Medications Generic Name Dose Route Start Last Admin Trade Name Freq PRN Reason Stop Dose Admin Albuterol Sulfate 1 amp 04/03/17 19:30 Ventolin 0.083% Nebulizer Soln - NEB Q4H PRN SHORT OF BREATH/WHEEZING Albuterol/Ipratropium 1 amp 04/04/17 18:00 04/05/17 06:39 Duoneb - NEB Not Given QIDR EUFEMIA Budesonide/Formoterol Fumarate 2 puff 04/03/17 22:00 04/04/17 21:05 Symbicort 160/4.5mcg - IH 2 puff BID EUFEMIA Administration Enoxaparin Sodium 40 mg 04/04/17 10:00 04/04/17 10:15 Lovenox - SQ 40 mg DAILY EUFEMIA Administration Azithromycin 500 mg/ Dextrose 250 mls @ 166.667 mls/hr 04/03/17 22:00 21:46 IVPB 166.667 mls/hr HS EUFEMIA Administration CEFTRIAXONE 1 G/50 ML PREMIX 50 mls @ 100 mls/hr 04/03/17 22:00 04/04/17 21: 02 Ceftriaxone 1 Gm-D5w Bag IVPB 100 mls/hr HS EUFEMIA Administration Lactobacillus Acidophilus 1 tab 04/04/17 10:00 04/04/17 10:14 Bacid - PO 1 tab DAILY EUFEMIA Administration Methylprednisolone Sodium Succinate 40 mg 04/04/17 18:00 04/05/17 02:09 Solu-Medrol - IVPUSH 40 mg Q8H-IV EUFEMIA Administration Montelukast Sodium 10 mg 04/04/17 22:00 04/04/17 21:02 Singulair - PO 10 mg HS EUFEMIA Administration Ranitidine HCl 150 mg 04/04/17 10:00 04/04/17 10:15 Zantac - PO 150 mg DAILY EUFEMIA Administration ASSESSMENT/PLAN: 26 year-old female with PMH significant for asthma admitted for pneumomediastinum and acute asthma exacerbation. Pneumomediastinum likely secondary to acute asthma exacerbation --04/02 CT chest: (1) pneumomediastinum; (2) atelectasis; cannot r/o pneumonia --04/03 barium swallow: negative study --seen and evaluated by CT surgery, no further management necessary --continue solumedrol IV, Symbicort, nebs --continue azithro and ceftriaxone --daily peak flows Vaginal discharge Dysuria, resolved --diflucan x 1 dose given last night with symptomatic relief --UA negative --no further antibiotics FEN Fluids: PO intake adequate Electrolytes: replete as indicated Nutrition: regular diet DVT prophylaxis: lovenox, oob, ambulation Dispo: continues to require inpatient care. Full code. Visit type - Emergency Visit Emergency Visit: Yes ED Registration Date: 04/02/17 Care time: The patient presented to the Emergency Department on the above date and was hospitalized for further evaluation of their emergent condition. - New Patient This patient is new to me today: No - Critical Care Critical Care patient: No
[2017-04-05] MEDS: ENOXAPARIN NA (PORCINE) 40 MG/0.4 ML DISP.SYRIN SQ SCH (09:11)
[2017-04-05] MEDS: RANITIDINE HCL 150 MG TABLET (FP) PO SCH (09:11)
[2017-04-05] MEDS: LACTOBACILLUS ACIDOPHILUS 1 EACH TAB (FP) PO SCH (09:11)
[2017-04-05] MEDS: BUDESONIDE/FORMETEROL FUMARATE 160/4.5 mcg INHALER IH SCH ×2 (09:27→21:49)
--- NOTE | 2017-04-05 12:43 | PN ---
Progress Note, Physician History of Present Illness: pulmonary alert ,feeling better,less dyspneic,less chest discomfort - Current Medication List Current Medications: Active Medications Albuterol Sulfate (Ventolin 0.083% Nebulizer Soln -) 1 amp NEB Q4H PRN PRN Reason: SHORT OF BREATH/WHEEZING Albuterol/Ipratropium (Duoneb -) 1 amp NEB QIDR [facility] Last Admin: 04/05/17 06:39 Dose: Not Given Budesonide/Formoterol Fumarate (Symbicort 160/4.5mcg -) 2 puff IH BID [facility] Last Admin: 04/05/17 09:27 Dose: 2 puff Enoxaparin Sodium (Lovenox -) 40 mg SQ DAILY [facility] Last Admin: 04/05/17 09:11 Dose: 40 mg Azithromycin 500 mg/ Dextrose 250 mls @ 166.667 mls/hr IVPB [facility] Last Admin: 04/04/17 21:46 Dose: 166.667 mls/hr CEFTRIAXONE 1 G/50 ML PREMIX (Ceftriaxone 1 Gm-D5w Bag) 50 mls @ 100 mls/hr IVPB [facility] Last Admin: 04/04/17 21:02 Dose: 100 mls/hr Lactobacillus Acidophilus (Bacid -) 1 tab PO DAILY [facility] Last Admin: 04/05/17 09:11 Dose: 1 tab Methylprednisolone Sodium Succinate (Solu-Medrol -) 40 mg IVPUSH Q8H-IV [facility] Last Admin: 04/05/17 09:11 Dose: 40 mg Montelukast Sodium (Singulair -) 10 mg PO [facility] Last Admin: 04/04/17 21:02 Dose: 10 mg Ranitidine HCl (Zantac -) 150 mg PO DAILY [facility] Last Admin: 04/05/17 09:11 Dose: 150 mg - Objective Vital Signs: Vital Signs Temperature 98 F 04/05/17 10:00 Pulse Rate 68 04/05/17 10:00 Respiratory Rate 20 04/05/17 10:00 Blood Pressure 132/67 04/05/17 10:00 O2 Sat by Pulse Oximetry (%) 99 04/05/17 10:00 Constitutional: Yes: Well Nourished, Calm Eyes: Yes: WNL HENT: Yes: WNL Neck: Yes: WNL Cardiovascular: Yes: Regular Rate and Rhythm, S1, S2 Respiratory: Yes: Rhonchi, Wheezes Gastrointestinal: Yes: Normal Bowel Sounds, Soft Extremities: Yes: WNL Edema: No Labs: CBC, BMP Problem List - Problems (1) URI (upper respiratory infection) Code(s): J06.9 - ACUTE UPPER RESPIRATORY INFECTION, UNSPECIFIED (2) Status asthmaticus Code(s): J45.902 - UNSPECIFIED ASTHMA WITH STATUS ASTHMATICUS Qualifiers: Asthma severity: moderate Asthma persistence: unspecified Qualified Code( s): J45.902 - Unspecified asthma with status asthmaticus Assessment/Plan A/P Acute Asthma Exacerbation improving Pneumomediastinum - continue medrol 40mg q8h - inahled bronchodilators standing and PRN - monitor peak flow - singulair - DVT prophylaxis DR REYES
[2017-04-05] MEDS ORDERED: PT OWN MED DRAWER 7, Y5N ONE (21:42)
[2017-04-05] MEDS: CEFTRIAXONE 1 G/50 ML PREMIX 50 ML IVPB SCH (21:44)
[2017-04-05] MEDS: MONTELUKAST NA 10 MG TABLET PO SCH (21:44)
[2017-04-05] MEDS: AZITHROMYCIN IVPB 500 MG in DEXTROSE 5%-WATER - 250 ML IVPB SCH (22:21)
[2017-04-06] MEDS: methylPREDNISolone NA SUCC 40 MG/1 ML VIAL IVPUSH SCH ×2 (02:08→11:00)
[2017-04-06] MEDS: ALBUTEROL SO4 2.5/IPRATROPIUM 0.5 INH SOL 3 ML VIAL.NEB. NEB SCH ×2 (06:10→11:45)
[2017-04-06 10:57] VITALS: BP 126/74; TEMP 98
[2017-04-06] MEDS: LACTOBACILLUS ACIDOPHILUS 1 EACH TAB (FP) PO SCH (11:01)
[2017-04-06] MEDS: ENOXAPARIN NA (PORCINE) 40 MG/0.4 ML DISP.SYRIN SQ SCH (11:01)
[2017-04-06] MEDS: RANITIDINE HCL 150 MG TABLET (FP) PO SCH (11:01)
[2017-04-06] MEDS ORDERED: PT OWN MED DRAWER 7, Y5N ONE (11:02)
[2017-04-06] MEDS: BUDESONIDE/FORMETEROL FUMARATE 160/4.5 mcg INHALER IH SCH (11:19)
--- NOTE | 2017-04-06 12:24 | PN ---
Progress Note (short form) - Note Progress Note: PULMONARY Still some cough and wheezing but feels significantly improved. Peak flows almost 400. Last Vital Signs Temp Pulse Resp BP Pulse Ox 98 F 85 18 126/74 98 04/06/17 10:56 04/06/17 10:56 04/06/17 10:56 04/06/17 10:56 04/05/17 21:00 Gen: NAD at rest Heart: RRR Lung: bilateral rhonchi, wheezes Abd: soft, nontender Ext: no edema CBC, BMP 04/04/17 06:10 04/04/17 06:10 Active Medications Albuterol Sulfate (Ventolin 0.083% Nebulizer Soln -) 1 amp NEB Q4H PRN PRN Reason: SHORT OF BREATH/WHEEZING Albuterol/Ipratropium (Duoneb -) 1 amp NEB QIDR [facility] Last Admin: 04/06/17 06:10 Dose: 1 amp Budesonide/Formoterol Fumarate (Symbicort 160/4.5mcg -) 2 puff IH BID [facility] Last Admin: 04/06/17 11:19 Dose: 2 puff Enoxaparin Sodium (Lovenox -) 40 mg SQ DAILY [facility] Last Admin: 04/06/17 11:01 Dose: 40 mg Azithromycin 500 mg/ Dextrose 250 mls @ 166.667 mls/hr IVPB [facility] Last Admin: 04/05/17 22:21 Dose: 166.667 mls/hr CEFTRIAXONE 1 G/50 ML PREMIX (Ceftriaxone 1 Gm-D5w Bag) 50 mls @ 100 mls/hr IVPB [facility] Last Admin: 04/05/17 21:44 Dose: 100 mls/hr Lactobacillus Acidophilus (Bacid -) 1 tab PO DAILY [facility] Last Admin: 04/06/17 11:01 Dose: 1 tab Methylprednisolone Sodium Succinate (Solu-Medrol -) 40 mg IVPUSH Q8H-IV [facility] Last Admin: 04/06/17 11:00 Dose: 40 mg Montelukast Sodium (Singulair -) 10 mg PO [facility] Last Admin: 04/05/17 21:44 Dose: 10 mg Ranitidine HCl (Zantac -) 150 mg PO DAILY [facility] Last Admin: 04/06/17 11:01 Dose: 150 mg A/P Acute Asthma Exacerbation Pneumomediastinum - can change steroids to PO prednisone 60mg daily and taper by 10mg q3 days until off - inahled bronchodilators standing and PRN - instructed to monitor peak flow at home - continue singulair - outpt PFTs - DVT prophylaxis
[2017-04-06 12:39] VITALS: PULSE 98
--- NOTE | 2017-04-06 13:04 | DS ---
Physical Exam: SUBJECTIVE: Patient seen and examined OBJECTIVE: Vital Signs Period Temp Pulse Resp BP Sys/Robledo Pulse Ox Last 24 Hr 97.7 F-98.9 F 70-98 18-20 117-127/71-88 96-98 PHYSICAL EXAM GENERAL: The patient is awake, alert, and fully oriented, in no acute distress. HEAD: Normal with no signs of trauma. EYES: PERRL, extraocular movements intact, sclera anicteric, conjunctiva clear. ENT: Ears normal, nares patent, oropharynx clear without exudates, moist mucous membranes. NECK: Trachea midline, full range of motion, supple. LUNGS: Breath sounds equal, clear to auscultation bilaterally, no wheezes, no crackles, no accessory muscle use. HEART: Regular rate and rhythm, S1, S2 without murmur, rub or gallop. ABDOMEN: Soft, nontender, nondistended, normoactive bowel sounds, no guarding, no rebound, no hepatosplenomegaly, no masses. EXTREMITIES: 2+ pulses, warm, well-perfused, no edema. NEUROLOGICAL: Cranial nerves II through XII grossly intact. Normal speech, gait not observed. PSYCH: Normal mood, normal affect. SKIN: Warm, dry, normal turgor, no rashes or lesions noted. LABS HOSPITAL COURSE: Date of Admission:04/02/17 Date of Discharge: 04/06/17 Discharge Summary Reason For Visit: ASTHMA/PNEUMONIA Current Active Problems Asthma (Acute) Pneumomediastinum (Acute) Pneumonia (Acute) Status asthmaticus (Acute) URI (upper respiratory infection) (Acute) Condition: Stable - Instructions Diet, Activity, Other Instructions: Please return to the ED for any, persistent, or worsening symptoms. Follow up with your PCP in 1 week Take prescribed antibiotics and steroids as directed and until completed Daily peak flows Referrals: Mario George MD [Staff Physician] - Disposition: HOME - Home Medications Comprehensive Discharge Medication List: Ambulatory Orders Albuterol 0.083% Nebulizer Tashia [Ventolin 0.083% Nebulizer Soln -] 1 neb NEB Q6H PRN #1 box 04/01/17 Albuterol Sulfate Inhaler - [Ventolin HFA Inhaler -] 2 puff BC PRN 04/01/17 Cefuroxime Axetil [Ceftin -] 500 mg PO Q12H #8 tablet 04/06/17 Pantoprazole Sodium [Protonix -] 40 mg PO DAILY #7 tablet.ec 04/06/17 Prednisone [Deltasone -] 10 mg PO ASDIR #63 tab 04/06/17 - Discharge Referral Referred to [facility] Med P.C.: No
== END 2017-04-06 17:03 | disposition home or self-care (01) | DRG 139 ==
LOC: FER 17:30 → FM/S 23:41 → UNDOADMOB 04-02 00:09 → FM/S 04-02 12:16 → OBSVTOIN 04-02 19:54 → JICU 04-02 22:47 → J7W 04-03 21:02
PROVIDERS: ADMIT Internal Medicine; ATTEND Nurse Practitioner Acute Care
DX: J18.9 Pneumonia, unspecified organism (principal); J45.902 Unspecified asthma with status asthmaticus; J06.9 Acute upper respiratory infection, unspecified; J98.2 Interstitial emphysema
CPT/HCPCS: 36415; 36600; 71020-TC; 71250-TC; 74220-TC; 80048; 80053; 81003; 82803; 83605; 83735; 84100; 84703; 85025; 85027; 87040; 87086; 87633; 87804; 87899; 94010; 94150; 94640; 94761; 99284-25; G0378

== ENCOUNTER 2022-02-11 14:31 | Emergency (ER) | payer OTHER ==
[2022-02-11] MEDS ORDERED: BUPIVACAINE HCL 0.25% 125 MG/50 ML VIAL INF ONE (14:40)
[2022-02-11] MEDS ORDERED: AMOX TR/POT CLAV 875MG/125MG TABLETS (FP) PO ONE (14:45)
[2022-02-11] MEDS ORDERED: AMOX TR/POT CLAV 875MG/125MG TABLETS (FP) ONE (14:51)
[2022-02-11 14:56] VITALS: BP 126/78; PULSE 62; RESP 14; TEMP 98.1; BMI 25.6
== END 2022-02-11 15:26 | disposition home or self-care (01) ==
LOC: FER 14:31
DX: K08.89 Other specified disorders of teeth and supporting structures (principal)
CPT/HCPCS: 99283-25

== ENCOUNTER 2023-12-09 19:52 | Emergency (ER) | payer OTHER ==
[2023-12-09 19:57] VITALS: RESP 18; BMI 22.8
[2023-12-09] MEDS ORDERED: ALBUTEROL SO4 2.5/IPRATROPIUM 0.5 INH SOL 3 ML VIAL.NEB. NEB ONE ×2 (19:59→20:25)
[2023-12-09] MEDS: ALBUTEROL SO4 2.5/IPRATROPIUM 0.5 INH SOL 3 ML VIAL.NEB. NEB SCH ×2 (20:16→22:32)
[2023-12-09 20:24] LABS: HEMATOCRIT 42.2 % (32.4-45.2); HEMOGLOBIN 14.5 GM/dL (10.7-15.3); MCH 32.1 pg (25.7-33.7); MCHC 34.4 g/dl (32.0-36.0); MEAN CELL VOLUME 93.6 fl (80-96); MEAN PLT VOLUME 9.1 fl (7.5-11.1); PLATELET COUNT 144 10^3/uL (134-434); RBC 4.51 M/mm3 (3.60-5.2); RDW 14.3 % (11.6-15.6); WHITE BLOOD COUNT 10.7 K/mm3 (4.0-10.0)
[2023-12-09 20:30] LABS: INR 1.21 (0.83-1.09); PROTHROMBIN TIME (PATIENT) 13.6 SEC (9.7-13.0)
[2023-12-09 20:33] LABS: ACTIVATED PTT 35.3 SECONDS (25.2-36.5)
[2023-12-09 20:34] LABS: POTASSIUM 3.6 mmol/L (3.5-5.1)
[2023-12-09 20:36] LABS: CALCIUM 9.4 mg/dL (8.5-10.1)
[2023-12-09 20:37] LABS: ALBUMIN 4.2 g/dl (3.4-5.0); BLOOD UREA NITROGEN 12.3 mg/dL (7-18)
[2023-12-09 20:40] LABS: CREATININE 0.7 mg/dL (0.55-1.3)
[2023-12-09 20:42] LABS: BILIRUBIN,TOTAL 2.3 mg/dL (0.2-1); TOT PROT 8.3 g/dl (6.4-8.2)
[2023-12-09] MEDS ORDERED: ALBUTEROL SO4 0.083% IH SOL 2.5 MG/3 ML VIAL.NEB. NEB ONE ×3 (20:48→23:20)
[2023-12-09] MEDS ORDERED: predniSONE 20 MG TABLET (UD) ONE (20:48)
[2023-12-09] MEDS ORDERED: MAGNESIUM SULFATE IN WATER 2 GM/50 ML IVPB IVPB ONE (20:54)
[2023-12-09] MEDS: predniSONE 20 MG TABLET (UD) PO ONE ×2 (20:57→23:28)
[2023-12-09] MEDS: ALBUTEROL SO4 0.5 % INH SOLN 2.5 MG/0.5 ML VIAL.NEB. NEB ONE (20:57)
[2023-12-09] MEDS: MAGNESIUM SULFATE IN WATER 2 GM/50 ML IVPB IVPB ONE (20:57)
[2023-12-09] MEDS ORDERED: ACETAMINOPHEN INJECTION 100 ML ONE (20:59)
[2023-12-09 21:19] LABS: BILIRUBIN,DIRECT 0.6 mg/dL (0.0-0.2)
[2023-12-09] MEDS: ACETAMINOPHEN 1000 MG/100 ML BAG IVPB ONE (21:44)
[2023-12-09 22:29] LABS: EPI CELLS 6 /uL (0-25.1); HYALINE CASTS 0 /uL (0-3.1); URINE APPEARANCE CLEAR; URINE BACTERIA 24 /uL (0-1359); URINE BILIRUBIN NEGATIVE (NEGATIVE); URINE COLOR YELLOW; URINE GLUCOSE (UA) NEGATIVE (NEGATIVE); URINE KETONE 1+ (NEGATIVE); URINE LEUK ESTERASE NEGATIVE (NEGATIVE); URINE NITRITE NEGATIVE (NEGATIVE); URINE PROTEIN 1+ (NEGATIVE); URINE RBC 15 /uL (0-23.9); URINE WBC 5 /uL (0-25.8)
[2023-12-09] MEDS: LACTATED RINGERS SOLUTION 1000 ML INFUS.BAG IV ONE (22:32)
[2023-12-09 22:47] VITALS: BP 113/69; PULSE 115; TEMP 99.3
[2023-12-09] MEDS ORDERED: ALBUTEROL SO4 HFA INHALER IH ONE (23:19)
[2023-12-09] MEDS: ALBUTEROL SO4 HFA INHALER IH ONE (23:20)
[2023-12-09] MEDS: ALBUTEROL SULFATE 0.021% (0.63 MG/3 ML) VIAL.NEB NEB ONE (23:20)
== END 2023-12-09 23:53 | disposition home or self-care (01) ==
LOC: JER 19:52
PROC: 3E033GC Introduction of Other Therapeutic Substance into Peripheral Vein, Percutaneous Approach (ICD-10-PCS; principal; 2023-12-09)
PROC: 3E033NZ Introduction of Analgesics, Hypnotics, Sedatives into Peripheral Vein, Percutaneous Approach (ICD-10-PCS; 2023-12-09)
PROC: 3E0F7GC Introduction of Other Therapeutic Substance into Respiratory Tract, Via Natural or Artificial Opening (ICD-10-PCS; 2023-12-09)
PROC: 3E0F7GC Introduction of Other Therapeutic Substance into Respiratory Tract, Via Natural or Artificial Opening (ICD-10-PCS; 2023-12-09)
PROC: 3E0F7GC Introduction of Other Therapeutic Substance into Respiratory Tract, Via Natural or Artificial Opening (ICD-10-PCS; 2023-12-09)
DX: J45.901 Unspecified asthma with (acute) exacerbation (principal); M79.10 Myalgia, unspecified site; R07.0 Pain in throat; Z20.822 Contact with and (suspected) exposure to COVID-19
CPT/HCPCS: 0241U-QW; 36415; 71045-TC-FY; 80053; 81003; 82248; 84703; 85027; 85379; 85610; 85730; 87086; 93005; 93010; 99285-25; J0131